=== PATIENT | male | born 1945 | race Caucasian/White ===

== ENCOUNTER → 2016-03-15 | Outpatient (CLI) | payer MEDICARE ==
[~2016-03-15] VITALS: Ht 177.8 cm; Wt 90.7 kg
[~2016-03-15] MED LIST: ALBU17IN2 INH; AMIT50TA PO; AMLO5TAB2 PO; ATEN25TA PO; FINA5TAB2 PO; GABA300C3 PO; HYDR12.55 PO; LIDOCAINE 2% INJ 100 MG/5 ML SDV (FOR ANES.) As Ordered ONE; LISI40TAB PO; MELO15TA4 PO; NS 1,000 ML IV SCH; PANT40TA2 PO; PROPOFOL 200 MG/20 ML VIAL As Ordered ONE; SIMV80TA PO; SYMB16INH INH; TAMS0.4C2 PO; TIZA2CAP3 PO
--- NOTE | 2016-03-15 08:13 | ROOR ---
Patient Name: Jared Escobedo Procedure Date: 03/15/2016 7:52 AM Date of : 1945 Age: 71 Room: [facility] Gender: Male Note Status: Finalized Procedure: Upper GI endoscopy Indications: Periumbilical abdominal pain, Heartburn Providers: Calin LYNCH MD Referring MD: HYUN BOWERS MD Requesting Provider: Medicines: Monitored Anesthesia Care Complications: No immediate complications. Procedure: Pre-Anesthesia Assessment: - The heart rate, respiratory rate, oxygen saturations, blood pressure, adequacy of pulmonary ventilation, and response to care were monitored throughout the procedure. The Endoscope was introduced through the mouth, and advanced to the second part of duodenum. The upper GI endoscopy was accomplished without difficulty. The patient tolerated the procedure well. Findings: The esophagus was normal. The stomach was normal. The examined duodenum was normal. Impression: - Normal esophagus. - Normal stomach. - Normal examined duodenum. - No specimens collected. Recommendation: - Observe patient's clinical course. Calin Lynch MD Calin LYNCH MD 03/15/2016 8:12:54 AM This report has been signed electronically. Number of Addenda: 0 Note Initiated On: 03/15/2016 7:52 AM Estimated Blood Loss: Estimated blood loss: none.
[2016-03-15 08:36] VITALS: BP 132/85
== END | disposition home or self-care (01) ==
LOC: M OPP 07:00
PROVIDERS: ATTEND Internal Medicine Gastroenterology
DX: R10.33 Periumbilical pain (principal); R12 Heartburn; I10 Essential (primary) hypertension; E78.00 Pure hypercholesterolemia, unspecified; M19.90 Unspecified osteoarthritis, unspecified site; F41.9 Anxiety disorder, unspecified; J44.9 Chronic obstructive pulmonary disease, unspecified; N40.0 Benign prostatic hyperplasia without lower urinary tract symptoms; Z97.4 Presence of external hearing-aid; Z97.2 Presence of dental prosthetic device (complete) (partial); Z87.891 Personal history of nicotine dependence; Z79.899 Other long term (current) drug therapy

== ENCOUNTER → 2018-05-29 | Outpatient (REF) | payer MEDICARE ==
[~2018-05-29] MED LIST changes: -AMLO5TAB2 PO; +AMLO5TAB6 PO; +GABA-843 PO; -GABA300C3 PO; -LIDOCAINE 2% INJ 100 MG/5 ML SDV (FOR ANES.) As Ordered ONE; +LISI40TA52 PO; -LISI40TAB PO; +MELO15TA28 PO; -MELO15TA4 PO; -NS 1,000 ML IV SCH; -PANT40TA2 PO; +PANT40TA3 PO; -PROPOFOL 200 MG/20 ML VIAL As Ordered ONE; -SIMV80TA PO; +SIMV80TA13 PO; +TIZA2CAP PO; -TIZA2CAP3 PO
== END ==
LOC: M SMT 16:57
PROVIDERS: ATTEND Urology
DX: N50.811 Right testicular pain (principal)
CPT/HCPCS: 87086; G0463

== ENCOUNTER → 2019-10-07 | Outpatient (CLI) | payer MEDICARE ==
[~2019-10-07] MED LIST changes: +AMLO1TAB24 PO; -AMLO5TAB6 PO; +PANT40TA29 PO; -PANT40TA3 PO
--- NOTE | 2019-11-30 10:19 | REP ---
RIGHT HAND SERIES: 4-VIEWS HISTORY: Two puncture wounds in the region of the fifth digit. FINDINGS: 4-views of the right hand are performed. No acute fracture or dislocation. There is a metallic foreign body in the medial soft tissues at the base of the fifth finger. This measures about 2 mm in diameter. There is another punctate metallic foreign body just distal to this. I see no other radiopaque foreign body in the soft tissues. There is no acute fracture or dislocation. There is mild narrowing of the distal interphalangeal joints of the third through fifth digits. IMPRESSION: No acute fracture or dislocation. Two tiny metallic foreign bodies in the soft tissues of the fifth digit at the medial base of the digit in the soft tissues. MTDD
== END ==
LOC: M WUC 15:03
PROVIDERS: ATTEND Internal Medicine
DX: S61.236A Puncture wound without foreign body of right little finger without damage to nail, initial encounter (principal); X58.XXXA Exposure to other specified factors, initial encounter; Y92.89 Other specified places as the place of occurrence of the external cause; Y93.9 Activity, unspecified; Y99.9 Unspecified external cause status

== ENCOUNTER → 2023-01-30 | Outpatient (CLI) | payer MEDICARE, MEDICAID ==
[~2023-01-30] MED LIST changes: +GABA-282 PO; -GABA-843 PO
[2023-01-30 13:16] LABS: HEMATOCRIT 43.5 % (42.0-52.0); HEMOGLOBIN 13.8 g/dl (13.5-17.5); MEAN CORPUSCULAR HEMOGLOBIN 28.3 pg (27.0-33.0); MEAN CORPUSCULAR HGB CONC 31.7 g/dl (32.0-36.5); MEAN CORPUSCULAR VOLUME 89.1 fl (80.0-96.0); PLATELET COUNT, AUTOMATED 187 10^3/uL (150-450); RED BLOOD COUNT 4.88 10^6/uL (4.30-6.10)
[2023-01-30 13:49] LABS: ALBUMIN 3.6 G/DL (3.2-5.2); ALKALINE PHOSPHATASE 62 U/L (46-116); ALT/SGPT 28 U/L (7.0-40); AST/SGOT 34 U/L (<34); BLOOD UREA NITROGEN 16 MG/DL (9-23); CALCIUM LEVEL 8.6 MG/DL (8.3-10.6); CARBON DIOXIDE LEVEL 29 MMOL/L (20-31); CHLORIDE LEVEL 104 MMOL/L (98-107); CHOLESTEROL LEVEL 166 MG/DL (<200); CHOLESTEROL RISK RATIO 2.79 (<5); CREATININE FOR GFR 1.07 MG/DL (0.70-1.30); GLOMERULAR FILTRATION RATE > 60.0 (>42); GLUCOSE, FASTING 89 MG/DL (74-106); HDL CHOLESTEROL 59.3 MG/DL (>40); LDL CHOLESTEROL 88.1 MG/DL (<100); NON-HDL-C 106.7 MG/DL; POTASSIUM SERUM 4.5 MMOL/L (3.5-5.1); SODIUM LEVEL 140 MMOL/L (136-145); TOTAL PROTEIN 6.1 G/DL (5.7-8.2); TRIGLYCERIDES LEVEL 93 MG/DL (<150)
[2023-01-31 06:51] LABS: WHITE BLOOD COUNT 5.4 10^3/uL (4.0-10.0)
== END ==
LOC: M LAB 12:23
PROVIDERS: ATTEND Internal Medicine
DX: E78.2 Mixed hyperlipidemia (principal); R19.7 Diarrhea, unspecified

== ENCOUNTER → 2023-02-15 | Outpatient (REF) | payer MEDICARE | LOC: M LAB REF 17:50 | PROVIDERS: ATTEND Physician Assistant Medical | DX: B34.9 Viral infection, unspecified (principal) ==

== ENCOUNTER 2024-04-15 15:59 | Inpatient (IN) | payer MEDICARE, MEDICAID ==
[~2024-04-15] VITALS: Ht 177.8 cm; Wt 81.4 kg
[~2024-04-15 15:59] MED LIST changes: +GABA-1172 PO; -GABA-282 PO
[2024-04-15 17:56] LABS: BASO % 0.1 % (0.0-1.0); EOS % 0.1 % (0.0-3.0); HEMATOCRIT 56.4 % (42.0-52.0); HEMOGLOBIN 18.2 g/dl (13.5-17.5); LYMPH # 0.9 10^3/uL (1.5-5.0); LYMPH % 6.2 % (24.0-44.0); MEAN CORPUSCULAR HEMOGLOBIN 27.6 pg (27.0-33.0); MEAN CORPUSCULAR HGB CONC 32.3 g/dl (32.0-36.5); MEAN CORPUSCULAR VOLUME 85.5 fl (80.0-96.0); MONO # 1.2 10^3/uL (0.0-0.8); MONO % 8.8 % (2.0-8.0); NEUTROPHILS # 11.7 10^3/uL (1.5-8.5); NEUTROPHILS % 84.5 % (36.0-66.0); PLATELET COUNT, AUTOMATED 246 10^3/uL (150-450); WHITE BLOOD COUNT 13.9 10^3/uL (4.0-10.0)
[2024-04-15 18:19] LABS: BILIRUBIN,DIRECT 0.1 MG/DL (<0.4); BILIRUBIN,TOTAL 0.4 MG/DL (0.3-1.2); CREATININE FOR GFR 1.66 MG/DL (0.70-1.30); GLOMERULAR FILTRATION RATE 42.8 (>42); POTASSIUM SERUM 3.9 MMOL/L (3.5-5.1); TOTAL PROTEIN 7.3 G/DL (5.7-8.2)
[2024-04-15] MEDS ORDERED: ISOVUE-370 76% 100ML VIAL As Ordered ONE (19:44)
[2024-04-15] MEDS: KETOROLAC 30 MG/ML 1ML VIAL IV ONE (20:00)
[2024-04-15] MEDS: ONDANSETRON 4MG 2ML VIAL IV ONE (20:00)
[2024-04-15] MEDS: NS (Normal Saline) 0.9% 1,000 ML IV ONE (20:01)
[2024-04-15 21:55] LABS: CK-MB VALUE MASS 9.4 NG/ML (<3.6)
[2024-04-15 21:56] LABS: MB/CK RELATIVE INDEX 2.52 (< OR =4)
[2024-04-16] MEDS ORDERED: AMIT25TA19 PO (01:20)
[2024-04-16] MEDS ORDERED: ALBU8.5H INH (01:20)
[2024-04-16] MEDS ORDERED: TAMS1CAP17 PO (01:20)
[2024-04-16] MEDS ORDERED: SIMV40TA20 PO (01:20)
[2024-04-16] MEDS ORDERED: LISI40TA4 PO (01:20)
[2024-04-16] MEDS ORDERED: ONDANSETRON 4MG 2ML VIAL IV PRN (01:30)
[2024-04-16 01:36] LABS: MAGNESIUM LEVEL 1.7 MG/DL (1.8-2.4)
[2024-04-16] MEDS: NS (Normal Saline) 0.9% 1,000 ML IV ONE (01:47)
[2024-04-16] MEDS ORDERED: HOME MED LIST COMPLETE! XX SCH (01:55)
[2024-04-16] MEDS: NS (Normal Saline) 0.9% 1,000 ML IV SCH (03:56)
[2024-04-16] MEDS: MAG SULF 1GM/100ML (MAG RUN) 1 GM in IV 1 EA IV SCH (05:13)
[2024-04-16] MEDS: SYMBICORT 160/4.5MCG INHALER 6GM INH SCH (08:36)
[2024-04-16] MEDS: LACTOBACILLUS ACIDOPHILUS CAP PO SCH (08:54)
[2024-04-16] MEDS: FINASTERIDE 5MG TAB PO SCH (08:54)
[2024-04-16] MEDS: PANTOPRAZOLE 40MG TAB PO SCH (08:55)
[2024-04-16] MEDS: SIMVASTATIN 40 MG TAB PO SCH (08:55)
[2024-04-16] MEDS: atenoloL 25 MG TAB PO SCH (08:58)
[2024-04-16] MEDS ORDERED: lisinopriL 40MG TAB PO SCH (09:00)
[2024-04-16] MEDS ORDERED: PANTOPRAZOLE 40MG VIAL IV SCH (09:00)
[2024-04-16 10:38] LABS: BASO # 0.1 10^3/uL (0.0-0.2); BASO % 0.4 % (0.0-1.0); EOS # 0.1 10^3/uL (0.0-0.5); EOS % 0.5 % (0.0-3.0); HEMATOCRIT 48.3 % (42.0-52.0); LYMPH # 2.1 10^3/uL (1.5-5.0); LYMPH % 17.1 % (24.0-44.0); MEAN CORPUSCULAR HEMOGLOBIN 27.7 pg (27.0-33.0); MEAN CORPUSCULAR HGB CONC 31.9 g/dl (32.0-36.5); MEAN CORPUSCULAR VOLUME 86.9 fl (80.0-96.0); MONO # 1.6 10^3/uL (0.0-0.8); MONO % 13.5 % (2.0-8.0); NEUTROPHILS # 8.3 10^3/uL (1.5-8.5); PLATELET COUNT, AUTOMATED 206 10^3/uL (150-450); RED BLOOD COUNT 5.56 10^6/uL (4.30-6.10); WHITE BLOOD COUNT 12.2 10^3/uL (4.0-10.0)
[2024-04-16 10:40] LABS: HEMOGLOBIN 15.4 g/dl (13.5-17.5)
[2024-04-16 11:05] LABS: ALBUMIN 3.3 G/DL (3.2-5.2); ALKALINE PHOSPHATASE 62 U/L (40-129); ALT/SGPT 38 U/L (7.0-40); AST/SGOT 90 U/L (<34); BILIRUBIN,TOTAL 0.3 MG/DL (0.3-1.2); BLOOD UREA NITROGEN 31 MG/DL (9-23); CALCIUM LEVEL 8.2 MG/DL (8.3-10.6); CARBON DIOXIDE LEVEL 23 MMOL/L (20-31); CHLORIDE LEVEL 111 MMOL/L (98-107); CREATININE FOR GFR 1.23 MG/DL (0.70-1.30); GLOMERULAR FILTRATION RATE > 60.0 (>42); GLUCOSE, FASTING 106 MG/DL (74-106); MAGNESIUM LEVEL 2.2 MG/DL (1.8-2.4); POTASSIUM SERUM 3.7 MMOL/L (3.5-5.1); SODIUM LEVEL 145 MMOL/L (136-145); TOTAL PROTEIN 5.9 G/DL (5.7-8.2)
[2024-04-16 14:23] LABS: HEMOGLOBIN A1c 5.3 % (4.0-6.0)
[2024-04-16] MEDS: HEPARIN SOD 5000UNITS/ML 1ML VIAL/SYRINGE SC SCH (15:51)
[2024-04-16 17:30] VITALS: BP 120/81; TEMP 97.3; O2SAT 99
[2024-04-16 19:30] VITALS: BP 129/81; TEMP 97.9; O2SAT 94
[2024-04-16] MEDS: TAMSULOSIN 0.4 MG CAP PO SCH (21:02)
[2024-04-16] MEDS: AMITRIPTYLINE 25MG TABLET PO SCH (21:02)
[2024-04-17 04:50] VITALS: BP 140/76; TEMP 97.3; O2SAT 96
[2024-04-17] MEDS: HALOPERIDOL LACTATE 5MG/ML VIAL IV ONE (05:56)
[2024-04-17 06:27] LABS: BASO % 0.4 % (0.0-1.0); EOS # 0.1 10^3/uL (0.0-0.5); EOS % 1.2 % (0.0-3.0); HEMATOCRIT 42.6 % (42.0-52.0); HEMOGLOBIN 13.5 g/dl (13.5-17.5); LYMPH # 1.7 10^3/uL (1.5-5.0); LYMPH % 17.9 % (24.0-44.0); MEAN CORPUSCULAR HEMOGLOBIN 27.2 pg (27.0-33.0); MEAN CORPUSCULAR HGB CONC 31.7 g/dl (32.0-36.5); MEAN CORPUSCULAR VOLUME 85.7 fl (80.0-96.0); MONO # 1.4 10^3/uL (0.0-0.8); MONO % 14.2 % (2.0-8.0); NEUTROPHILS # 6.3 10^3/uL (1.5-8.5); PLATELET COUNT, AUTOMATED 205 10^3/uL (150-450); RED BLOOD COUNT 4.97 10^6/uL (4.30-6.10); WHITE BLOOD COUNT 9.5 10^3/uL (4.0-10.0)
[2024-04-17 07:04] LABS: ALBUMIN 3.1 G/DL (3.2-5.2); ALKALINE PHOSPHATASE 57 U/L (40-129); ALT/SGPT 45 U/L (7.0-40); AST/SGOT 155 U/L (<34); BILIRUBIN,TOTAL 0.5 MG/DL (0.3-1.2); BLOOD UREA NITROGEN 22 MG/DL (9-23); CALCIUM LEVEL 8.2 MG/DL (8.3-10.6); CARBON DIOXIDE LEVEL 26 MMOL/L (20-31); CHLORIDE LEVEL 109 MMOL/L (98-107); CREATININE FOR GFR 1.07 MG/DL (0.70-1.30); GLOMERULAR FILTRATION RATE > 60.0 (>42); GLUCOSE, FASTING 90 MG/DL (74-106); MAGNESIUM LEVEL 1.9 MG/DL (1.8-2.4); PHOSPHORUS LEVEL 2.5 MG/DL (2.4-5.1); POTASSIUM SERUM 3.3 MMOL/L (3.5-5.1); SODIUM LEVEL 146 MMOL/L (136-145); TOTAL PROTEIN 5.3 G/DL (5.7-8.2)
[2024-04-17 07:56] LABS: HEPATITIS B SURFACE ANTIBODY NEGATIVE (POSITIVE)
[2024-04-17 08:07] LABS: HEPATITIS B SURFACE ANTIGEN NEGATIVE (NEGATIVE)
[2024-04-17] MEDS: POTASSIUM CHLORIDE 10MEQ SR TABLET PO ONE (08:58)
[2024-04-17 12:00] VITALS: BP 119/73; TEMP 98.2; O2SAT 97
[2024-04-17 20:00] VITALS: BP 145/88; TEMP 97.7; O2SAT 96
[2024-04-17] MEDS: LOPERAMIDE 2 MG CAPLET PO PRN (21:02)
[2024-04-18 04:00] VITALS: BP 171/87; TEMP 97.7; O2SAT 94
[2024-04-18 06:07] LABS: BASO % 0.4 % (0.0-1.0); EOS # 0.1 10^3/uL (0.0-0.5); EOS % 1.5 % (0.0-3.0); HEMATOCRIT 39.3 % (42.0-52.0); HEMOGLOBIN 12.4 g/dl (13.5-17.5); LYMPH # 1.9 10^3/uL (1.5-5.0); LYMPH % 24.8 % (24.0-44.0); MEAN CORPUSCULAR HEMOGLOBIN 27.2 pg (27.0-33.0); MEAN CORPUSCULAR HGB CONC 31.6 g/dl (32.0-36.5); MEAN CORPUSCULAR VOLUME 86.2 fl (80.0-96.0); MONO % 13.1 % (2.0-8.0); NEUTROPHILS # 4.5 10^3/uL (1.5-8.5); NEUTROPHILS % 59.8 % (36.0-66.0); PLATELET COUNT, AUTOMATED 192 10^3/uL (150-450); RED BLOOD COUNT 4.56 10^6/uL (4.30-6.10); WHITE BLOOD COUNT 7.6 10^3/uL (4.0-10.0)
[2024-04-18 06:32] LABS: ALBUMIN 2.9 G/DL (3.2-5.2); ALKALINE PHOSPHATASE 52 U/L (40-129); ALT/SGPT 46 U/L (7.0-40); AST/SGOT 146 U/L (<34); BILIRUBIN,TOTAL 0.6 MG/DL (0.3-1.2); BLOOD UREA NITROGEN 16 MG/DL (9-23); CALCIUM LEVEL 8.1 MG/DL (8.3-10.6); CARBON DIOXIDE LEVEL 24 MMOL/L (20-31); CHLORIDE LEVEL 110 MMOL/L (98-107); CREATININE FOR GFR 1.02 MG/DL (0.70-1.30); GLOMERULAR FILTRATION RATE > 60.0 (>42); GLUCOSE, FASTING 77 MG/DL (74-106); MAGNESIUM LEVEL 1.8 MG/DL (1.8-2.4); POTASSIUM SERUM 3.6 MMOL/L (3.5-5.1); SODIUM LEVEL 144 MMOL/L (136-145); TOTAL PROTEIN 5.1 G/DL (5.7-8.2)
[2024-04-18] MEDS: lisinopriL 40MG TAB PO SCH (10:12)
[2024-04-18 12:00] VITALS: BP 128/77; TEMP 98.1
[2024-04-18 19:31] VITALS: BP 138/75; TEMP 97.9; O2SAT 96
[2024-04-19 03:33] VITALS: BP 136/98; TEMP 97.7; O2SAT 96
[2024-04-19 05:59] LABS: BASO % 0.4 % (0.0-1.0); EOS # 0.2 10^3/uL (0.0-0.5); EOS % 2.4 % (0.0-3.0); HEMATOCRIT 36.7 % (42.0-52.0); LYMPH # 1.9 10^3/uL (1.5-5.0); LYMPH % 26.3 % (24.0-44.0); MEAN CORPUSCULAR HEMOGLOBIN 27.7 pg (27.0-33.0); MEAN CORPUSCULAR HGB CONC 32.7 g/dl (32.0-36.5); MEAN CORPUSCULAR VOLUME 84.8 fl (80.0-96.0); MONO # 0.9 10^3/uL (0.0-0.8); MONO % 13.2 % (2.0-8.0); NEUTROPHILS # 4.1 10^3/uL (1.5-8.5); NEUTROPHILS % 57.4 % (36.0-66.0); PLATELET COUNT, AUTOMATED 183 10^3/uL (150-450); RED BLOOD COUNT 4.33 10^6/uL (4.30-6.10); WHITE BLOOD COUNT 7.1 10^3/uL (4.0-10.0)
[2024-04-19 06:28] LABS: ALBUMIN 2.7 G/DL (3.2-5.2); ALKALINE PHOSPHATASE 52 U/L (40-129); ALT/SGPT 43 U/L (7.0-40); AST/SGOT 106 U/L (<34); BILIRUBIN,TOTAL 0.6 MG/DL (0.3-1.2); BLOOD UREA NITROGEN 10 MG/DL (9-23); CALCIUM LEVEL 7.8 MG/DL (8.3-10.6); CARBON DIOXIDE LEVEL 27 MMOL/L (20-31); CHLORIDE LEVEL 106 MMOL/L (98-107); CREATININE FOR GFR 0.97 MG/DL (0.70-1.30); GLOMERULAR FILTRATION RATE > 60.0 (>42); GLUCOSE, FASTING 85 MG/DL (74-106); MAGNESIUM LEVEL 1.8 MG/DL (1.8-2.4); POTASSIUM SERUM 3.3 MMOL/L (3.5-5.1); SODIUM LEVEL 144 MMOL/L (136-145); TOTAL PROTEIN 4.8 G/DL (5.7-8.2)
[2024-04-19] MEDS ORDERED: POTASSIUM CHLORIDE 10MEQ SR TABLET PO ONE (07:35)
[2024-04-19] MEDS: POTASSIUM CHLORIDE 10MEQ SR TABLET PO ONE (08:31)
[2024-04-19 12:15] VITALS: BP 142/86; TEMP 97.5; O2SAT 94
[2024-04-19 21:45] VITALS: BP 142/86; TEMP 97.9; O2SAT 96
[2024-04-20 04:00] VITALS: BP 144/85; TEMP 97.7; O2SAT 95
[2024-04-20 06:02] LABS: BASO # 0.1 10^3/uL (0.0-0.2); BASO % 0.4 % (0.0-1.0); EOS # 0.2 10^3/uL (0.0-0.5); EOS % 1.5 % (0.0-3.0); HEMATOCRIT 44.4 % (42.0-52.0); HEMOGLOBIN 14.6 g/dl (13.5-17.5); LYMPH # 1.9 10^3/uL (1.5-5.0); LYMPH % 15.1 % (24.0-44.0); MEAN CORPUSCULAR HEMOGLOBIN 27.7 pg (27.0-33.0); MEAN CORPUSCULAR HGB CONC 32.9 g/dl (32.0-36.5); MEAN CORPUSCULAR VOLUME 84.3 fl (80.0-96.0); MONO # 1.5 10^3/uL (0.0-0.8); NEUTROPHILS # 8.8 10^3/uL (1.5-8.5); NEUTROPHILS % 70.5 % (36.0-66.0); PLATELET COUNT, AUTOMATED 231 10^3/uL (150-450); RED BLOOD COUNT 5.27 10^6/uL (4.30-6.10); WHITE BLOOD COUNT 12.6 10^3/uL (4.0-10.0)
[2024-04-20 06:36] LABS: ALBUMIN 3.6 G/DL (3.2-5.2); ALKALINE PHOSPHATASE 72 U/L (40-129); ALT/SGPT 60 U/L (7.0-40); AST/SGOT 113 U/L (<34); BILIRUBIN,TOTAL 0.8 MG/DL (0.3-1.2); BLOOD UREA NITROGEN 11 MG/DL (9-23); CALCIUM LEVEL 8.9 MG/DL (8.3-10.6); CARBON DIOXIDE LEVEL 25 MMOL/L (20-31); CHLORIDE LEVEL 104 MMOL/L (98-107); CREATININE FOR GFR 1.06 MG/DL (0.70-1.30); GLOMERULAR FILTRATION RATE > 60.0 (>42); GLUCOSE, FASTING 84 MG/DL (74-106); MAGNESIUM LEVEL 1.8 MG/DL (1.8-2.4); POTASSIUM SERUM 3.9 MMOL/L (3.5-5.1); SODIUM LEVEL 143 MMOL/L (136-145); TOTAL PROTEIN 6.2 G/DL (5.7-8.2)
[2024-04-20] MEDS: NS (Normal Saline) 0.9% 1,000 ML IV ONE (11:19)
[2024-04-20 12:00] VITALS: BP 154/85; TEMP 97.9; O2SAT 98
[2024-04-20 20:58] VITALS: BP 132/77; TEMP 97.7; O2SAT 95
[2024-04-21] VITALS (13 sets, daily range): BP systolic 111–152; BP diastolic 67–87; TEMP 97.5–98.1; O2SAT 78–96
[2024-04-21] MEDS: ALBUTEROL 90 MCG/ACT 8GM HFA INHALER INH PRN (04:58)
[2024-04-21] MEDS ORDERED: LEVALBUTEROL 1.25 MG 0.5ML CONCENTRATE NEB INH PRN (06:00)
[2024-04-21 06:03] LABS: BASO % 0.3 % (0.0-1.0); EOS # 0.1 10^3/uL (0.0-0.5); EOS % 0.7 % (0.0-3.0); HEMATOCRIT 43.2 % (42.0-52.0); HEMOGLOBIN 14.1 g/dl (13.5-17.5); LYMPH # 1.7 10^3/uL (1.5-5.0); LYMPH % 11.2 % (24.0-44.0); MEAN CORPUSCULAR HEMOGLOBIN 27.8 pg (27.0-33.0); MEAN CORPUSCULAR HGB CONC 32.6 g/dl (32.0-36.5); MONO % 12.7 % (2.0-8.0); NEUTROPHILS # 11.5 10^3/uL (1.5-8.5); NEUTROPHILS % 74.6 % (36.0-66.0); PLATELET COUNT, AUTOMATED 242 10^3/uL (150-450); RED BLOOD COUNT 5.08 10^6/uL (4.30-6.10); WHITE BLOOD COUNT 15.4 10^3/uL (4.0-10.0)
[2024-04-21 06:20] LABS: ALBUMIN 3.5 G/DL (3.2-5.2); BILIRUBIN,DIRECT 0.2 MG/DL (<0.4); BILIRUBIN,TOTAL 0.7 MG/DL (0.3-1.2); TOTAL PROTEIN 6.1 G/DL (5.7-8.2)
[2024-04-21 06:21] LABS: C REACTIVE PROTEIN QUANTITATIV 1.68 MG/DL (<1.0)
[2024-04-21 06:22] LABS: BLOOD UREA NITROGEN 12 MG/DL (9-23); CALCIUM LEVEL 8.7 MG/DL (8.3-10.6); CARBON DIOXIDE LEVEL 24 MMOL/L (20-31); CHLORIDE LEVEL 106 MMOL/L (98-107); GLOMERULAR FILTRATION RATE > 60.0 (>42); GLUCOSE, FASTING 103 MG/DL (74-106); MAGNESIUM LEVEL 1.8 MG/DL (1.8-2.4); POTASSIUM SERUM 3.9 MMOL/L (3.5-5.1); SODIUM LEVEL 141 MMOL/L (136-145)
[2024-04-21 06:29] LABS: PROCALCITONIN 0.2 ng/ml
[2024-04-21] MEDS: IPRATROPIUM 0.5MG/ALBUTEROL 2.5MG INH SOL UD 3ML NEB ONE (07:38)
[2024-04-21] MEDS ORDERED: methylPREDNISolone 125MG 2ML VIAL As Ordered ONE (08:35)
[2024-04-21] MEDS ORDERED: FUROSEMIDE 100MG/10ML VIAL As Ordered ONE (08:39)
[2024-04-21] MEDS: methylPREDNISolone 125MG 2ML VIAL IV ONE (08:57)
[2024-04-21] MEDS: FUROSEMIDE 100MG/10ML VIAL IV ONE (08:57)
[2024-04-21] MEDS: LEVALBUTEROL 1.25 MG 0.5ML CONCENTRATE NEB INH SCH (09:00)
[2024-04-21] MEDS: FORMOTEROL FUMARATE 20 MCG/2 ML INHALATION SOLUTION INH SCH (09:24)
[2024-04-21] MEDS: BUDESONIDE 0.5 MG/2 ML INHALATION SUSPENSION NEB SCH (09:25)
[2024-04-21] MEDS ORDERED: PIPERACILLIN/TAZOBACTAM SOD 3.375 GM in DEXTROSE 5% (D5W) ADV/MINI-BAG 50 ML IV SCH (09:50)
[2024-04-21] MEDS: PIPERACILLIN/TAZOBACTAM SOD 4.5 GM in DEXTROSE 5% (D5W) ADV/MINI-BAG 50 ML IV SCH (11:46)
[2024-04-21] MEDS: IPRATROPIUM 0.5MG/2.5ML (0.02%) SOLN NEB INH SCH (14:15)
[2024-04-21] MEDS: methylPREDNISolone 40MG 1ML VIAL IV SCH (17:22)
[2024-04-22 00:14] VITALS: O2SAT 95
[2024-04-22 03:30] VITALS: BP 149/88; TEMP 97.9; O2SAT 96
[2024-04-22 04:19] VITALS: O2SAT 94
[2024-04-22 05:57] LABS: BASO % 0.2 % (0.0-1.0); HEMATOCRIT 42.8 % (42.0-52.0); HEMOGLOBIN 14.3 g/dl (13.5-17.5); LYMPH # 0.8 10^3/uL (1.5-5.0); LYMPH % 4.1 % (24.0-44.0); MEAN CORPUSCULAR HEMOGLOBIN 27.7 pg (27.0-33.0); MEAN CORPUSCULAR HGB CONC 33.4 g/dl (32.0-36.5); MEAN CORPUSCULAR VOLUME 82.8 fl (80.0-96.0); MONO # 1.1 10^3/uL (0.0-0.8); MONO % 5.8 % (2.0-8.0); NEUTROPHILS # 16.3 10^3/uL (1.5-8.5); NEUTROPHILS % 89.1 % (36.0-66.0); PLATELET COUNT, AUTOMATED 279 10^3/uL (150-450); RED BLOOD COUNT 5.17 10^6/uL (4.30-6.10); WHITE BLOOD COUNT 18.3 10^3/uL (4.0-10.0)
[2024-04-22 06:23] LABS: CALCIUM LEVEL 8.9 MG/DL (8.3-10.6); CREATININE FOR GFR 1.26 MG/DL (0.70-1.30); GLOMERULAR FILTRATION RATE 58.8 (>42); POTASSIUM SERUM 3.5 MMOL/L (3.5-5.1)
[2024-04-22 09:10] VITALS: TEMP 99.3
[2024-04-22] MEDS ORDERED: PIPERACILLIN/TAZOBACTAM SOD 3.375 GM in DEXTROSE 5% (D5W) ADV/MINI-BAG 50 ML IV SCH (11:00)
[2024-04-22 12:00] VITALS: BP 116/76; TEMP 99.1
[2024-04-22] MEDS: PIPERACILLIN/TAZOBACTAM SOD 3.375 GM in DEXTROSE 5% (D5W) ADV/MINI-BAG 50 ML IV SCH (12:06)
[2024-04-22] MEDS: IPRATROPIUM 0.5MG/2.5ML (0.02%) SOLN NEB INH SCH (13:54)
[2024-04-22] MEDS: LEVALBUTEROL 1.25 MG 0.5ML CONCENTRATE NEB INH SCH (13:54)
[2024-04-22 15:01] LABS: KETONE, URINE AUTO RFX 1+ mg/dL (NEGATIVE); LEUKOCYTE ESTERASE UR AUTO RFX NEGATIVE (NEGATIVE); NITRITE, URINE AUTO RFX NEGATIVE (NEGATIVE); RBC, URINE AUTO RFX 0 /HPF (0-3); SQUAM EPITHELIAL CELL UR AURFX 0 /HPF (0-6); WBC, URINE AUTO RFX 0 /HPF (0-3)
[2024-04-22 20:00] VITALS: BP 118/75; TEMP 97.5; O2SAT 96
[2024-04-23] MEDS: HALOPERIDOL LACTATE 5MG/ML VIAL IM PRN (02:02)
[2024-04-23 04:00] VITALS: BP 141/92; TEMP 98.8; O2SAT 96
[2024-04-23 06:05] LABS: BASO % 0.1 % (0.0-1.0); EOS % 0.1 % (0.0-3.0); HEMATOCRIT 40.2 % (42.0-52.0); HEMOGLOBIN 13.1 g/dl (13.5-17.5); LYMPH % 5.6 % (24.0-44.0); MEAN CORPUSCULAR HEMOGLOBIN 27.5 pg (27.0-33.0); MEAN CORPUSCULAR HGB CONC 32.6 g/dl (32.0-36.5); MEAN CORPUSCULAR VOLUME 84.3 fl (80.0-96.0); MONO # 1.7 10^3/uL (0.0-0.8); MONO % 9.4 % (2.0-8.0); NEUTROPHILS # 14.7 10^3/uL (1.5-8.5); NEUTROPHILS % 83.8 % (36.0-66.0); PLATELET COUNT, AUTOMATED 303 10^3/uL (150-450); RED BLOOD COUNT 4.77 10^6/uL (4.30-6.10); WHITE BLOOD COUNT 17.5 10^3/uL (4.0-10.0)
[2024-04-23 06:23] LABS: CALCIUM LEVEL 8.6 MG/DL (8.3-10.6); CREATININE FOR GFR 1.42 MG/DL (0.70-1.30); GLOMERULAR FILTRATION RATE 51.2 (>42); MAGNESIUM LEVEL 2.1 MG/DL (1.8-2.4); POTASSIUM SERUM 3.4 MMOL/L (3.5-5.1)
[2024-04-23] MEDS: D5W 1,000 ML IV SCH (08:49)
[2024-04-23] MEDS: predniSONE 20 MG TAB PO SCH (08:55)
[2024-04-23 09:00] VITALS: BP 144/88; TEMP 97.5; O2SAT 92
[2024-04-23] MEDS: MIRALAX *UNIT DOSE* 17GM PACKET PO SCH (09:00)
[2024-04-23] MEDS: SENOKOT S TAB PO SCH (09:07)
[2024-04-23 12:00] VITALS: BP 110/66; TEMP 97.3; O2SAT 94
[2024-04-23] MEDS: POTASSIUM CHLORIDE 10MEQ SR TABLET PO ONE (13:21)
[2024-04-23 19:09] LABS: CALCIUM LEVEL 8.3 MG/DL (8.3-10.6); CREATININE FOR GFR 1.28 MG/DL (0.70-1.30); GLOMERULAR FILTRATION RATE 57.7 (>42)
[2024-04-23] MEDS: SYMBICORT 80/4.5MCG INHALER 6GM INH SCH (20:00)
[2024-04-24 03:40] VITALS: BP 150/79; TEMP 97.5; O2SAT 96
[2024-04-24 04:58] LABS: BASO % 0.1 % (0.0-1.0); EOS # 0.1 10^3/uL (0.0-0.5); EOS % 0.4 % (0.0-3.0); HEMATOCRIT 42.6 % (42.0-52.0); HEMOGLOBIN 13.7 g/dl (13.5-17.5); LYMPH # 1.6 10^3/uL (1.5-5.0); LYMPH % 11.6 % (24.0-44.0); MEAN CORPUSCULAR HEMOGLOBIN 27.5 pg (27.0-33.0); MEAN CORPUSCULAR HGB CONC 32.2 g/dl (32.0-36.5); MEAN CORPUSCULAR VOLUME 85.4 fl (80.0-96.0); MONO # 1.3 10^3/uL (0.0-0.8); MONO % 9.6 % (2.0-8.0); NEUTROPHILS # 10.5 10^3/uL (1.5-8.5); NEUTROPHILS % 77.6 % (36.0-66.0); PLATELET COUNT, AUTOMATED 323 10^3/uL (150-450); RED BLOOD COUNT 4.99 10^6/uL (4.30-6.10); WHITE BLOOD COUNT 13.6 10^3/uL (4.0-10.0)
[2024-04-24 05:31] LABS: CALCIUM LEVEL 8.4 MG/DL (8.3-10.6); CREATININE FOR GFR 1.31 MG/DL (0.70-1.30); GLOMERULAR FILTRATION RATE 56.2 (>42); MAGNESIUM LEVEL 2.1 MG/DL (1.8-2.4); POTASSIUM SERUM 3.4 MMOL/L (3.5-5.1)
[2024-04-24] MEDS: D5W 1,000 ML IV SCH (07:12)
[2024-04-24] MEDS: POTASSIUM CHLORIDE 10MEQ SR TABLET PO ONE (08:13)
[2024-04-24] MEDS: SENOKOT S TAB PO SCH (08:14)
[2024-04-24 12:00] VITALS: BP 147/80; TEMP 97.8; O2SAT 93
[2024-04-24 20:10] VITALS: BP 150/88; TEMP 98.4; O2SAT 92
[2024-04-25 03:44] VITALS: BP 144/72; TEMP 97.7; O2SAT 97
[2024-04-25 05:57] LABS: BASO % 0.1 % (0.0-1.0); EOS % 0.1 % (0.0-3.0); HEMATOCRIT 42.2 % (42.0-52.0); HEMOGLOBIN 13.7 g/dl (13.5-17.5); LYMPH # 2.2 10^3/uL (1.5-5.0); LYMPH % 16.3 % (24.0-44.0); MEAN CORPUSCULAR HEMOGLOBIN 27.5 pg (27.0-33.0); MEAN CORPUSCULAR HGB CONC 32.5 g/dl (32.0-36.5); MEAN CORPUSCULAR VOLUME 84.6 fl (80.0-96.0); MONO # 1.4 10^3/uL (0.0-0.8); MONO % 10.8 % (2.0-8.0); NEUTROPHILS # 9.6 10^3/uL (1.5-8.5); PLATELET COUNT, AUTOMATED 318 10^3/uL (150-450); RED BLOOD COUNT 4.99 10^6/uL (4.30-6.10); WHITE BLOOD COUNT 13.4 10^3/uL (4.0-10.0)
[2024-04-25 06:21] LABS: BLOOD UREA NITROGEN 14 MG/DL (9-23); CALCIUM LEVEL 8.5 MG/DL (8.3-10.6); CARBON DIOXIDE LEVEL 30 MMOL/L (20-31); CHLORIDE LEVEL 101 MMOL/L (98-107); CREATININE FOR GFR 1.23 MG/DL (0.70-1.30); GLOMERULAR FILTRATION RATE > 60.0 (>42); GLUCOSE, FASTING 116 MG/DL (74-106); MAGNESIUM LEVEL 2.1 MG/DL (1.8-2.4); POTASSIUM SERUM 3.6 MMOL/L (3.5-5.1); SODIUM LEVEL 140 MMOL/L (136-145)
[2024-04-25] MEDS: AUGMENTIN 875 MG TAB PO SCH (11:03)
[2024-04-25 12:00] VITALS: BP 123/76; TEMP 98.1; O2SAT 100
[2024-04-25] MEDS: POTASSIUM CHLORIDE 10MEQ SR TABLET PO ONE (12:45)
[2024-04-25 20:00] VITALS: BP 113/60; TEMP 97.7; O2SAT 96
[2024-04-26 04:00] VITALS: TEMP 99; O2SAT 95
[2024-04-26 04:30] VITALS: BP 178/96
[2024-04-26 06:51] LABS: CALCIUM LEVEL 8.7 MG/DL (8.3-10.6); CREATININE FOR GFR 1.6 MG/DL (0.70-1.30); GLOMERULAR FILTRATION RATE 44.6 (>42)
[2024-04-26 07:23] VITALS: BP 172/90
[2024-04-26 12:00] VITALS: BP 150/95; TEMP 98.8; O2SAT 96
[2024-04-26 20:00] VITALS: BP 109/74; TEMP 97.5; O2SAT 96
[2024-04-27 04:00] VITALS: BP 118/70; TEMP 97.7; O2SAT 97
[2024-04-27 06:17] LABS: CALCIUM LEVEL 8.5 MG/DL (8.3-10.6); CREATININE FOR GFR 1.42 MG/DL (0.70-1.30); GLOMERULAR FILTRATION RATE 51.2 (>42); POTASSIUM SERUM 4.6 MMOL/L (3.5-5.1)
[2024-04-27 07:55] LABS: BASO % 0.2 % (0.0-1.0); EOS # 0.1 10^3/uL (0.0-0.5); EOS % 0.7 % (0.0-3.0); HEMATOCRIT 40.6 % (42.0-52.0); HEMOGLOBIN 13.2 g/dl (13.5-17.5); LYMPH # 1.6 10^3/uL (1.5-5.0); LYMPH % 12.8 % (24.0-44.0); MEAN CORPUSCULAR HEMOGLOBIN 27.7 pg (27.0-33.0); MEAN CORPUSCULAR HGB CONC 32.5 g/dl (32.0-36.5); MEAN CORPUSCULAR VOLUME 85.3 fl (80.0-96.0); MONO # 1.3 10^3/uL (0.0-0.8); MONO % 10.3 % (2.0-8.0); NEUTROPHILS # 9.5 10^3/uL (1.5-8.5); NEUTROPHILS % 75.1 % (36.0-66.0); PLATELET COUNT, AUTOMATED 325 10^3/uL (150-450); RED BLOOD COUNT 4.76 10^6/uL (4.30-6.10); WHITE BLOOD COUNT 12.6 10^3/uL (4.0-10.0)
[2024-04-27 08:21] LABS: CALCIUM LEVEL 8.3 MG/DL (8.3-10.6); CREATININE FOR GFR 1.36 MG/DL (0.70-1.30); GLOMERULAR FILTRATION RATE 53.8 (>42); POTASSIUM SERUM 4.3 MMOL/L (3.5-5.1)
[2024-04-27 12:00] VITALS: BP 126/71; TEMP 97.9; O2SAT 97
[2024-04-27] MEDS: OMEPRAZOLE/SODIUM BICARB 20-840MG 10ML ORAL SYRINGE PO SCH (14:21)
[2024-04-27 20:22] VITALS: BP 105/60; TEMP 97.5; O2SAT 95
[2024-04-28 04:45] VITALS: BP 104/61; TEMP 98.1; O2SAT 96
[2024-04-28 12:00] VITALS: BP 140/80; TEMP 98.6; O2SAT 93
[2024-04-28 20:00] VITALS: BP 119/67; TEMP 98.2; O2SAT 94
[2024-04-29 03:12] VITALS: BP 138/66; TEMP 98.2; O2SAT 96
[2024-04-30] VITALS (7 sets, daily range): BP systolic 105–147; BP diastolic 70–98; TEMP 98.2–104.3; O2SAT 90–97
[2024-04-30 09:17] LABS: BASO % 0.2 % (0.0-1.0); EOS % 0.2 % (0.0-3.0); HEMATOCRIT 50.5 % (42.0-52.0); HEMOGLOBIN 16.6 g/dl (13.5-17.5); LYMPH # 0.5 10^3/uL (1.5-5.0); MEAN CORPUSCULAR HEMOGLOBIN 27.7 pg (27.0-33.0); MEAN CORPUSCULAR HGB CONC 32.9 g/dl (32.0-36.5); MEAN CORPUSCULAR VOLUME 84.3 fl (80.0-96.0); MONO # 1.8 10^3/uL (0.0-0.8); MONO % 10.1 % (2.0-8.0); NEUTROPHILS # 15.2 10^3/uL (1.5-8.5); NEUTROPHILS % 85.8 % (36.0-66.0); PLATELET COUNT, AUTOMATED 391 10^3/uL (150-450); RED BLOOD COUNT 5.99 10^6/uL (4.30-6.10); WHITE BLOOD COUNT 17.8 10^3/uL (4.0-10.0)
[2024-04-30 09:38] LABS: BLOOD UREA NITROGEN 22 MG/DL (9-23); CARBON DIOXIDE LEVEL 24 MMOL/L (20-31); CHLORIDE LEVEL 100 MMOL/L (98-107); CREATININE FOR GFR 1.14 MG/DL (0.70-1.30); GLOMERULAR FILTRATION RATE > 60.0 (>42); GLUCOSE, FASTING 128 MG/DL (74-106); MAGNESIUM LEVEL 1.9 MG/DL (1.8-2.4); POTASSIUM SERUM 4.9 MMOL/L (3.5-5.1); SODIUM LEVEL 135 MMOL/L (136-145)
[2024-04-30] MEDS: NS (Normal Saline) 0.9% 1,000 ML IV SCH ×2 (09:40→14:46)
[2024-04-30] MEDS: ACETAMINOPHEN 325 MG TAB PO PRN (09:41)
[2024-04-30 10:40] LABS: BILIRUBIN,DIRECT 0.2 MG/DL (<0.4); BILIRUBIN,TOTAL 0.4 MG/DL (0.3-1.2); C REACTIVE PROTEIN QUANTITATIV 3.89 MG/DL (<1.0); TOTAL PROTEIN 6.2 G/DL (5.7-8.2)
[2024-04-30 10:53] LABS: PROCALCITONIN 0.46 ng/ml
[2024-04-30] MEDS: cefTRIAXone SOD 1 GM in DEXTROSE 5% (D5W) ADV/MINI-BAG 50 ML IV SCH (11:59)
[2024-04-30] MEDS: NS 500 ML IV ONE (13:56)
[2024-04-30 15:36] LABS: KETONE, URINE AUTO RFX 1+ mg/dL (NEGATIVE); LEUKOCYTE ESTERASE UR AUTO RFX NEGATIVE (NEGATIVE); MUCUS, URINE RFX SMALL (NEGATIVE); NITRITE, URINE AUTO RFX NEGATIVE (NEGATIVE); RBC, URINE AUTO RFX 37 /HPF (0-3); SQUAM EPITHELIAL CELL UR AURFX 0 /HPF (0-6); WBC, URINE AUTO RFX 4 /HPF (0-3)
[2024-04-30] MEDS: OSELTAMIVIR PHOSPHATE 75 MG CAP PO SCH (17:52)
[2024-04-30] MEDS: LevoFLOXacin IV 750 MG in IV 1 EA IV SCH (18:26)
[2024-04-30] MEDS: TAMSULOSIN 0.4 MG CAP PO ONE (23:56)
[2024-05-01 04:00] VITALS: BP 108/71; TEMP 100; O2SAT 95
[2024-05-01 06:38] LABS: BASO % 0.1 % (0.0-1.0); EOS % 0.1 % (0.0-3.0); HEMATOCRIT 43.5 % (42.0-52.0); LYMPH # 1.2 10^3/uL (1.5-5.0); LYMPH % 12.3 % (24.0-44.0); MEAN CORPUSCULAR HEMOGLOBIN 28.2 pg (27.0-33.0); MEAN CORPUSCULAR HGB CONC 32.2 g/dl (32.0-36.5); MEAN CORPUSCULAR VOLUME 87.5 fl (80.0-96.0); MONO % 9.9 % (2.0-8.0); NEUTROPHILS # 7.8 10^3/uL (1.5-8.5); NEUTROPHILS % 76.9 % (36.0-66.0); PLATELET COUNT, AUTOMATED 296 10^3/uL (150-450); RED BLOOD COUNT 4.97 10^6/uL (4.30-6.10); WHITE BLOOD COUNT 10.1 10^3/uL (4.0-10.0)
[2024-05-01 07:02] LABS: ALBUMIN 2.2 G/DL (3.2-5.2); ALKALINE PHOSPHATASE 78 U/L (40-129); ALT/SGPT 36 U/L (7.0-40); AST/SGOT 31 U/L (<34); BILIRUBIN,TOTAL 0.3 MG/DL (0.3-1.2); BLOOD UREA NITROGEN 26 MG/DL (9-23); CALCIUM LEVEL 8.2 MG/DL (8.3-10.6); CARBON DIOXIDE LEVEL 27 MMOL/L (20-31); CHLORIDE LEVEL 104 MMOL/L (98-107); CREATININE FOR GFR 1.14 MG/DL (0.70-1.30); GLOMERULAR FILTRATION RATE > 60.0 (>42); GLUCOSE, FASTING 101 MG/DL (74-106); MAGNESIUM LEVEL 2.1 MG/DL (1.8-2.4); POTASSIUM SERUM 4.5 MMOL/L (3.5-5.1); SODIUM LEVEL 139 MMOL/L (136-145); TOTAL PROTEIN 4.9 G/DL (5.7-8.2)
[2024-05-01] MEDS: MOM 30ML SUSPENSION UDC PO PRN (13:42)
[2024-05-01] MEDS: BISACODYL 10MG SUPP PR PRN (13:43)
[2024-05-01] MEDS: SENOKOT S TAB PO SCH (13:47)
[2024-05-01] MEDS: FLEET ENEMA PR ONE (16:08)
[2024-05-01 18:54] VITALS: TEMP 97.9
[2024-05-01 20:00] VITALS: BP 106/73; TEMP 97.9; O2SAT 97
[2024-05-02 04:00] VITALS: BP 139/79; TEMP 98.1; O2SAT 95
[2024-05-02] MEDS: ONDANSETRON 4MG ORAL DISINTEGRATING TAB PO PRN (10:12)
[2024-05-02] MEDS: FLEET ENEMA PR PRN (12:06)
[2024-05-03 03:54] VITALS: BP 129/80; TEMP 98.4; O2SAT 97
[2024-05-03] MEDS: LevoFLOXacin 750 MG TABLET PO SCH (21:36)
[2024-05-04 03:04] VITALS: BP 131/76; TEMP 98.4; O2SAT 94
[2024-05-05 03:51] VITALS: BP 127/78; TEMP 97.7; O2SAT 98
[2024-05-06 04:00] VITALS: BP 107/76; TEMP 97.6; O2SAT 96
[2024-05-07 04:00] VITALS: BP 125/77; TEMP 97.9; O2SAT 94
[2024-05-08 03:22] VITALS: BP 135/78; TEMP 98; O2SAT 96
[2024-05-09 03:24] VITALS: BP 122/80; TEMP 97.5; O2SAT 94
[2024-05-10 04:56] VITALS: BP 122/72; TEMP 97.5; O2SAT 95
[2024-05-11 04:00] VITALS: BP 116/76; TEMP 97.5; O2SAT 94
[2024-05-12 04:00] VITALS: BP 149/91; TEMP 97.5; O2SAT 94
[2024-05-13 04:00] VITALS: BP 154/94; TEMP 97.9; O2SAT 96
[2024-05-14 04:34] VITALS: BP 143/93; TEMP 97.7; O2SAT 96
[2024-05-15 04:00] VITALS: BP 118/76; TEMP 97.5; O2SAT 95
[2024-05-16 04:20] VITALS: BP 110/60; TEMP 97.9; O2SAT 96
[2024-05-17 03:14] VITALS: BP 116/73; TEMP 98.1; O2SAT 98
[2024-05-17] MEDS: OLANZapine INTRAMUSCULAR 10MG VIAL IM PRN (23:42)
[2024-05-18 03:26] VITALS: BP 105/61; TEMP 98.1; O2SAT 100
[2024-05-18 04:00] VITALS: O2SAT 100
[2024-05-19 06:45] VITALS: BP 98/54; TEMP 97.7; O2SAT 92
[2024-05-19] MEDS: atenoloL 50 MG TAB PO SCH (11:43)
[2024-05-19] MEDS: OLANZapine 5 MG TAB PO SCH (21:01)
[2024-05-20 06:00] VITALS: BP 121/67; TEMP 97.9; O2SAT 95
[2024-05-21 04:00] VITALS: BP 141/74; TEMP 97.7; O2SAT 98
[2024-05-22 05:04] VITALS: BP 144/85; TEMP 98.1; O2SAT 96
[2024-05-22 07:53] VITALS: BP 140/82
[2024-05-22] MEDS: HALOPERIDOL LACTATE 5MG/ML VIAL IM PRN (12:46)
[2024-05-22] MEDS: OLANZapine 5 MG TAB PO SCH (20:44)
[2024-05-24 04:00] VITALS: BP 137/82; TEMP 97.7; O2SAT 97
[2024-05-25 04:00] VITALS: BP 117/58; TEMP 97.9; O2SAT 95
[2024-05-25] MEDS: OMEPRAZOLE 20MG CAP PO SCH (10:09)
[2024-05-25] MEDS: OLANZapine 5 MG TAB PO PRN (15:28)
[2024-05-26 02:49] VITALS: BP 146/80; TEMP 98.1; O2SAT 98
[2024-05-27 03:31] VITALS: BP 132/74; TEMP 98.2; O2SAT 97
[2024-05-28 04:26] VITALS: TEMP 97.9; O2SAT 95
[2024-05-28 08:22] VITALS: BP 106/65
[2024-05-29 04:00] VITALS: BP 133/81; TEMP 97.9; O2SAT 94
[2024-05-29] MEDS ORDERED: HALOPERIDOL LACTATE 5MG/ML VIAL IV PRN (18:35)
[2024-05-29] MEDS: HALOPERIDOL LACTATE 5MG/ML VIAL IM PRN (18:47)
[2024-05-30 04:00] VITALS: BP 95/57; TEMP 97.7; O2SAT 96
[2024-05-31 03:21] VITALS: BP 123/94; TEMP 97.9; O2SAT 99
[2024-05-31] MEDS: OLANZapine 5 MG TAB PO SCH (16:25)
[2024-06-01 05:45] VITALS: BP 135/74; TEMP 98.1; O2SAT 96
[2024-06-01] MEDS: QUEtiapine FUMARATE 50MG TAB PO SCH (20:26)
[2024-06-02 03:57] VITALS: BP 103/69; TEMP 97.7; O2SAT 98
[2024-06-02] MEDS: QUEtiapine FUMARATE 50MG TAB PO ONE (13:31)
[2024-06-03 09:00] VITALS: BP 104/64
[2024-06-04] MEDS ORDERED: PERMETHRIN 5% CREAM 60 GM TOP SCH
[2024-06-04 04:20] VITALS: BP 132/82; TEMP 97.9; O2SAT 96
[2024-06-04] MEDS: **SEND HOME SECOND DOSE OF PERMETHRIN** MISC XX SCH (09:00)
[2024-06-04] MEDS: QUEtiapine FUMARATE 25 MG TAB PO SCH (14:58)
[2024-06-04] MEDS: PERMETHRIN 5% CREAM 60 GM TOP ONE (20:45)
[2024-06-05 03:40] VITALS: BP 113/74; TEMP 98.8; O2SAT 95
[2024-06-06 03:16] VITALS: BP 126/86; TEMP 97.9; O2SAT 94
[2024-06-06 04:16] VITALS: BP 130/71; TEMP 97.9; O2SAT 99
[2024-06-07 04:18] VITALS: BP 130/71; TEMP 98.2; O2SAT 98
[2024-06-08 01:13] VITALS: BP 112/67; TEMP 97.9; O2SAT 98
[2024-06-08 21:30] VITALS: BP 115/71
[2024-06-09 01:48] VITALS: BP 126/68; TEMP 98.1; O2SAT 99
[2024-06-10 03:49] VITALS: BP 126/66; TEMP 97.6; O2SAT 97
[2024-06-10 11:49] LABS: BASO # 0.1 10^3/uL (0.0-0.2); BASO % 1.5 % (0.0-1.0); EOS # 0.6 10^3/uL (0.0-0.5); EOS % 7.8 % (0.0-3.0); HEMATOCRIT 45.4 % (42.0-52.0); HEMOGLOBIN 14.4 g/dl (13.5-17.5); LYMPH # 1.6 10^3/uL (1.5-5.0); LYMPH % 22.3 % (24.0-44.0); MEAN CORPUSCULAR HEMOGLOBIN 27.7 pg (27.0-33.0); MEAN CORPUSCULAR HGB CONC 31.7 g/dl (32.0-36.5); MEAN CORPUSCULAR VOLUME 87.5 fl (80.0-96.0); MONO # 0.7 10^3/uL (0.0-0.8); MONO % 9.9 % (2.0-8.0); NEUTROPHILS # 4.2 10^3/uL (1.5-8.5); NEUTROPHILS % 58.1 % (36.0-66.0); PLATELET COUNT, AUTOMATED 304 10^3/uL (150-450); RED BLOOD COUNT 5.19 10^6/uL (4.30-6.10); WHITE BLOOD COUNT 7.3 10^3/uL (4.0-10.0)
[2024-06-10 12:04] LABS: INR 0.91; PARTIAL THROMBOPLASTIN TIME 27.1 SECONDS (24.8-34.2); PROTHROMBIN TIME 12.6 SECONDS (12.5-14.5)
[2024-06-10 12:30] LABS: CALCIUM LEVEL 9.3 MG/DL (8.3-10.6); CREATININE FOR GFR 0.98 MG/DL (0.70-1.30); GLOMERULAR FILTRATION RATE 78.4 (>42); POTASSIUM SERUM 4.1 MMOL/L (3.5-5.1)
[2024-06-10] MEDS: RIVAROXABAN 10MG TAB PO SCH (17:28)
[2024-06-11 01:36] VITALS: BP 112/70; TEMP 98.6; O2SAT 96
[2024-06-11] MEDS: PERMETHRIN 5% CREAM 60 GM TOP ONE (21:13)
[2024-06-12 04:50] VITALS: BP 115/72; TEMP 98.1; O2SAT 99
[2024-06-13 01:05] VITALS: BP 117/69; TEMP 98.6; O2SAT 97
[2024-06-13] MEDS: QUEtiapine FUMARATE 50MG TAB PO SCH (09:30)
[2024-06-14 04:38] VITALS: BP 128/70; TEMP 97.9; O2SAT 97
[2024-06-15 03:52] VITALS: BP 126/68; TEMP 97.9; O2SAT 98
[2024-06-15 03:56] VITALS: BP 133/88; TEMP 97.9; O2SAT 99
[2024-06-15] MEDS: OLANZapine ORAL DISINTEGRATING TAB 5MG PO PRN (21:34)
[2024-06-16 05:42] VITALS: BP 124/68; TEMP 97.5; O2SAT 100
[2024-06-18 04:00] VITALS: BP 119/74; TEMP 97.9; O2SAT 90
[2024-06-18] MEDS: FINASTERIDE 5MG TAB PO SCH (13:07)
[2024-06-18] MEDS: QUEtiapine FUMARATE 25 MG TAB PO SCH (20:36)
[2024-06-18] MEDS: RAMELTEON 8 MG TAB PO SCH (20:36)
[2024-06-20 05:54] VITALS: BP 112/67; TEMP 98.1; O2SAT 99
[2024-06-21 06:00] VITALS: BP 120/60; TEMP 97.1; O2SAT 96
[2024-06-21 10:36] VITALS: BP 114/69
[2024-06-22 03:57] VITALS: BP 113/67; TEMP 98.6; O2SAT 98
[2024-06-23 04:00] VITALS: BP 121/69; TEMP 98.1; O2SAT 94
[2024-06-24 04:41] VITALS: BP 102/60; TEMP 98.1; O2SAT 99
[2024-06-25 03:28] VITALS: BP 119/93; TEMP 98.8; O2SAT 97
[2024-06-25 08:30] VITALS: BP 136/75
[2024-06-25] MEDS: MOM 30ML SUSPENSION UDC PO SCH (08:37)
[2024-06-25] MEDS: METAMUCIL PACKET PO SCH (08:37)
[2024-06-26 03:34] VITALS: BP 142/74; TEMP 98.2; O2SAT 99
[2024-06-27 08:40] VITALS: BP 124/69; TEMP 97.5; O2SAT 100
[2024-06-27] MEDS: LACTULOSE 20GM/30ML SYRUP UDC PO SCH (13:13)
[2024-06-28 04:22] VITALS: BP 109/69; TEMP 97.9; O2SAT 99
[2024-06-29 05:16] VITALS: BP 138/62; TEMP 97.3; O2SAT 100
[2024-06-30 05:33] VITALS: BP 123/73; TEMP 98.2; O2SAT 98
[2024-06-30 09:21] VITALS: BP 132/62
[2024-07-01 05:24] VITALS: BP 130/60; TEMP 97.2; O2SAT 98
[2024-07-02 06:19] VITALS: BP 137/72; TEMP 97.9; O2SAT 97
[2024-07-03 05:11] VITALS: BP 118/65; TEMP 98.1; O2SAT 98
[2024-07-04 03:37] VITALS: BP 116/64; TEMP 97.5; O2SAT 98
[2024-07-05 04:00] VITALS: BP 141/72; TEMP 97.7; O2SAT 94
[2024-07-06 04:00] VITALS: BP 140/73; TEMP 97.3; O2SAT 95
[2024-07-08 06:04] VITALS: BP 114/61; TEMP 98.1; O2SAT 97
[2024-07-09 04:24] VITALS: BP 143/84; TEMP 97.9; O2SAT 98
[2024-07-10 05:27] VITALS: BP 129/78; TEMP 97.7; O2SAT 98
[2024-07-11 05:55] VITALS: BP 125/75; TEMP 97.7; O2SAT 98
[2024-07-12 04:46] VITALS: BP 107/66; TEMP 97.7; O2SAT 98
[2024-07-12] MEDS: BISACODYL 10MG SUPP PR ONE (10:00)
[2024-07-13 04:04] VITALS: BP 108/69; TEMP 98.2; O2SAT 98
[2024-07-13] MEDS ORDERED: MIRALAX *UNIT DOSE* 17GM PACKET PO SCH (09:00)
[2024-07-14 04:27] VITALS: BP 128/70; TEMP 97.9; O2SAT 100
[2024-07-14] MEDS ORDERED: QUET50TA4 PO (18:22)
[2024-07-14] MEDS ORDERED: QUET1TAB17 PO (18:22)
[2024-07-14] MEDS ORDERED: OMEP-173 PO (18:22)
[2024-07-14] MEDS ORDERED: OLANZapine DISINTEGRATING PO (18:22)
[2024-07-15 04:27] VITALS: BP 128/70; TEMP 97.5; O2SAT 98
[2024-07-15 09:41] VITALS: BP 128/69
== END 2024-07-15 13:00 | DRG 391 ==
LOC: M ED 15:59 → M ED INP 04-16 02:32 → M MSPAV 04-16 17:24
PROVIDERS: ADMIT Student in an Organized Health Care Education/Training Program; ATTEND Internal Medicine
PROC: B246ZZZ Ultrasonography of Right and Left Heart (ICD-10-PCS; principal; 2024-04-17)
DX: A08.11 Acute gastroenteropathy due to Norwalk agent (principal); J96.01 Acute respiratory failure with hypoxia; J69.0 Pneumonitis due to inhalation of food and vomit; A41.9 Sepsis, unspecified organism; J10.00 Influenza due to other identified influenza virus with unspecified type of pneumonia; J15.9 Unspecified bacterial pneumonia; I31.39 Other pericardial effusion (noninflammatory); F03.911 Unspecified dementia, unspecified severity, with agitation; N17.9 Acute kidney failure, unspecified; E87.0 Hyperosmolality and hypernatremia; J44.1 Chronic obstructive pulmonary disease with (acute) exacerbation; J44.0 Chronic obstructive pulmonary disease with (acute) lower respiratory infection; N39.0 Urinary tract infection, site not specified; I24.89 Other forms of acute ischemic heart disease; I50.30 Unspecified diastolic (congestive) heart failure; I11.0 Hypertensive heart disease with heart failure; Z66 Do not resuscitate; E86.0 Dehydration; R79.89 Other specified abnormal findings of blood chemistry; E83.42 Hypomagnesemia; R74.01 Elevation of levels of liver transaminase levels; D75.1 Secondary polycythemia; E78.5 Hyperlipidemia, unspecified; N40.1 Benign prostatic hyperplasia with lower urinary tract symptoms; K21.9 Gastro-esophageal reflux disease without esophagitis; K76.0 Fatty (change of) liver, not elsewhere classified; E87.6 Hypokalemia; R29.6 Repeated falls; E87.5 Hyperkalemia; G62.9 Polyneuropathy, unspecified; N18.9 Chronic kidney disease, unspecified; K59.00 Constipation, unspecified; I08.2 Rheumatic disorders of both aortic and tricuspid valves; Z79.899 Other long term (current) drug therapy